=== PATIENT | female | born 1945 | race Caucasian/White ===

== ENCOUNTER 2016-08-20 18:55 | Emergency (ER) | payer OTHER ==
[~2016-08-20] VITALS: Ht 165.1 cm; Wt 66.6 kg
[~2016-08-20 18:55] MED LIST: 1-ME1LIQ PO; HYDR-3580 PO; MOBI7.5T PO; RIVA10 PO; SIMV5TAB3 PO; VITA400C58 PO; XANA0.5T PO; Z.0.COMMODE-3:1; Z.0.CPM; Z.0.WALKERFRONT
[2016-08-20 19:51] VITALS: BP 155/78; PULSE 66; RESP 20; TEMP 97.9; O2SAT 100
[2016-08-20] MEDS ORDERED: TRAM50TA PO (20:19)
[2016-08-20] MEDS ORDERED: MELO7.5T4 PO (20:19)
[2016-08-20] MEDS ORDERED: ALPR.5 PO (20:19)
[2016-08-20] MEDS ORDERED: SIMV5TAB3 PO (20:19)
[2016-08-20] MEDS ORDERED: HYDR-3580 PO (20:19)
[2016-08-20] MEDS ORDERED: AMLO10TA2 PO (20:19)
[2016-08-20 20:35] VITALS: BP 183/88; PULSE 62; RESP 22; O2SAT 98
--- NOTE | 2016-08-20 22:42 | RADHPO ---
EXAM DATE/TIME: 08/20/2016 21:33 [facility] COMPARISON: No previous studies available for comparison. INDICATIONS : Right hip pain post fall two weeks ago. ORAL CONTRAST: No oral contrast ingested. RADIATION DOSE: 30.81 CTDIvol (mGy) ; Combined studies MEDICAL HISTORY : Hypertension. Left hip replacement. SURGICAL HISTORY : Fusion, lumbar. ENCOUNTER: Initial ACUITY: 2 weeks PAIN SCALE: 10/10 LOCATION: Right hip TECHNIQUE: Volumetric scanning of the pelvis was performed. Using automated exposure control and adjustment of the mA and/or kV according to patient size, radiation dose was kept as low as reasonably achievable t o obtain optimal diagnostic quality images. FINDINGS: Left total hip arthroplasty without evidence of dislocation. The right proximal femur is intact. No fracture seen. The right acetabulum is intact. The bony pelvic ring is intact without evidence of fracture. There is diffuse osteopenia. No evidence of free fluid in the pelvis. Moderate distentio n of urinary bladder. Inguinal regions are unremarkable. CONCLUSION: The osseous structures of the pelvis are grossly intact. Asher White MD on August 20, 2016 at 22:39 Board Certified Radiologist. This report was verified electronically.
[2016-08-20] MEDS ORDERED: oxyCODONE/ACETAMINOPHEN 5 MG/325 MG TAB PO ONE (23:00)
[2016-08-20] MEDS ORDERED: PROMETHAZINE HCL 25 MG TAB PO ONE (23:00)
--- NOTE | 2016-08-20 23:03 | RADHPO ---
EXAM DATE/TIME: 08/20/2016 21:33 [facility] COMPARISON: No previous studies available for comparison. INDICATIONS : Lower back pain post fall two weeks ago. RADIATION DOSE: 30.81 CTDIvol (mGy) ; Combined studies MEDICAL HISTORY : Hypertension. SURGICAL HISTORY : Fusion, lumbar. ENCOUNTER: Initial ACUITY: 2 weeks PAIN SCALE: 10/10 LOCATION: Lower back. TECHNIQUE: Volumetric scanning of the lumbar spine was performed. Multiplanar reconstructions in the sagittal, coronal and oblique axial planes were performed. Using automated exposure control and adjustment of the mA and/or kV according to patient size, radiation dose was kept as low as reasonably achievable t o obtain optimal diagnostic quality images. FINDINGS: There is normal alignment of vertebral bodies the lumbar spine and preservation of vertebral body hei ght. Vacuum phenomenon is seen in the L3-4 and L5-S1 discs. Moderate hypertrophic degenerative lo ges are present in the facet joints from L3-S1, slightly more prominent on the left side than on the right. No evidence of pars defect. Vascular calcification is seen in the wall of the abdominal aort a and iliac vessels. T12-L1: The thecal sac has a normal diameter. No evidence of disc bulge or protrusion. The neural foramina are patent bilaterally. L1-L2: The thecal sac has a normal diameter. No evidence of disc bulge or protrusion. The neural foramina are patent bilaterally. L2-L3: Broad-based bulging of the disc which extends into the neural foramen bilaterally. The epidural impr ession on the right side is greater than the left. L3-L4: Broad-based bulging of the disc flattening the ventral margin of the thecal sac. There is bilateral bony neural foraminal stenosis. Right laminectomy. L4-L5: There is central protrusion of the disc which flattens the ventral margin of the thecal sac. There i s some bulging of the disc into the neural foramen bilaterally but no lateral disc protrusion. Moder ate ligamentum flavum hypertrophy causes a triangular configuration to the thecal sac. AP dimension of the thecal sac measures 12 mm. L5-S1: Broad-based bulging of the disc without deviation of the S1 nerve roots or flattening the ventral mar gin of the thecal sac. CONCLUSION: 1. No evidence of compression deformity or spondylolisthesis. 2. Multilevel disc disease, greatest severity at the L4-5 level where there is a central disc protrus ion. Asher White MD on August 20, 2016 at 22:57 Board Certified Radiologist. This report was verified electronically.
[2016-08-20 23:09] VITALS: BP 160/67; RESP 20; O2SAT 99
[2016-08-20 23:33] VITALS: BP 176/75; PULSE 70; RESP 18; TEMP 98.1; O2SAT 95
[2016-08-20] MEDS ORDERED: PROM25TA5 PO (23:39)
[2016-08-20] MEDS ORDERED: ZOFR4TAB3 SL (23:39)
[2016-08-20] MEDS ORDERED: PRED20 PO (23:39)
--- NOTE | 2016-08-20 23:39 | PD ---
HPI Chief Complaint: Hip Injury Time Seen by Provider: 20:38 Travel History International Travel<30 days: No Contact w/Intl Traveler<30days: No Traveled to known affect area: No History of Present Illness HPI Patient 71-year-old female presents with her daughter for evaluation of right hip and right low back pain. Patient states been radiating down her legs for the past few days. Patient relates a history of approximate 2 weeks ago she tripped and fell landing on her right side. Patient tripped over a branch FOR horses. Patient did not think anything of it at the time did not feel any pops. Over time the pain has become more significant than her right lower extremity. Denies any saddle anesthesia denies any dysuria denies any fevers. PFSH Past Medical History Arthritis: Yes (osteoarthritis) Anxiety: Yes Cancer: No Cardiovascular Problems: No High Cholesterol: Yes Diabetes: No Diminished Hearing: No Endocrine: No Genitourinary: No Hepatitis: No Hiatal Hernia: No Hypertension: Yes Immune Disorder: No Musculoskeletal: Yes (ARTHRITIS, OSTEOPOROSIS) Neurologic: No Psychiatric: Yes (ANXIETY) Reproductive: No Respiratory: Yes (COPD) Thyroid Disease: No Tetanus Vaccination: Unknown Influenza Vaccination: Yes ?: Not Past Surgical History AICD: No Hysterectomy: Yes (PARTIAL) Joint Replacement: Yes (2 titanium knee replacement; left hip replacement) Oral Surgery: Yes (BACK) Pacemaker: No Thoracic Surgery: Yes (back surgery 1994) Social History Alcohol Use: No Tobacco Use: Yes Substance Use: No Allergies-Medications (Allergen,Severity, Reaction): Coded Allergies: Mushroom (Verified Allergy, Severe, SWELLING, NAUSEA, 08/20/16) Penicillin (Verified Allergy, Unknown, Swelling, 08/20/16) Sulfa (Verified Allergy, Unknown, Swelling, 08/20/16) Reported Meds & Prescriptions Reported Meds & Active Scripts Active Phenergan (Promethazine HCl) 25 Mg Tab 25 Mg PO Q6H PRN Zofran Odt (Ondansetron Odt) 4 Mg Tab 4 Mg SL Q6HR PRN Prednisone 20 Mg Tab 60 Mg PO DAILY 5 Days Reported Hydrocodone-Acetaminophen 7.5-325 mg Tab 1 Tab PO Q4H PRN Xanax (Alprazolam) 0.5 Mg Tab 0.25 Mg PO DAILY Tramadol (Tramadol HCl) 50 Mg Tab 50 Mg PO Q8H PRN Simvastatin 5 Mg Tab 2.5 Mg PO DAILY Amlodipine (Amlodipine Besylate) 10 Mg Tab 10 Mg PO DAILY Meloxicam 7.5 Mg Tab 7.5 Mg PO DAILY Review of Systems Except as stated in HPI: all other systems reviewed are Neg Physical Exam Narrative GENERAL: Well-nourished, well-developed patient. SKIN: Focused skin assessment warm/dry. HEAD: Normocephalic. EYES: No scleral icterus. No injection or drainage. NECK: Supple, trachea midline. No JVD or lymphadenopathy. CARDIOVASCULAR: Regular rate and rhythm without murmurs, gallops, or rubs. RESPIRATORY: Breath sounds equal bilaterally. No accessory muscle use. GASTROINTESTINAL: Abdomen soft, non-tender, nondistended. MUSCULOSKELETAL: No cyanosis, or edema. There is bony tenderness at the SI joint on the right. There is minimal midline tenderness in the low-dose lumbar spine. Pelvis is stable. No tenderness at the hip or greater trochanter. Full range of motion of the leg albeit tender. Pulses motor and sensory intact distally in all 4 extremities. Compartments are soft. Patient has 5 out of 5 plantar flexion both feet, 5 out of 5 extension at the knee. She ambulates antalgic without foot drop. BACK: Nontender without obvious deformity. No CVA tenderness. Data Data Last Documented VS Vital Signs Date Time Temp Pulse Resp B/P Pulse Ox O2 Delivery O2 Flow Rate FiO2 08/21/16 01:00 18 08/20/16 23:33 98.1 70 176/[address] Lumb Spine W/O Contrast (08/20/16 ) Ct Pelvis W/O Iv Contrast (08/20/16 ) Oxycodone-Acetamin 5-325 Mg (Percocet (08/20/16 23:00) Promethazine (Phenergan) (08/20/16 23:00) MDM Medical Decision Making Medical Screen Exam Complete: Yes Emergency Medical Condition: Yes Differential Diagnosis Pathologic fracture, sciatica, spinal stenosis, sacroiliitis. Narrative Course Patient was roomed in the emergency department, initially offered pain medication and she declined. CT scans of her lumbar spine and pelvis were obtained: Last [address] 08/20/16 0000 Signed Impressions: Service Date/Time: Saturday, August 20, 2016 21:33 - CONCLUSION: The osseous structures of the pelvis are grossly intact. Asher White MD Lumbar Spine CT 08/20/16 0000 Signed Impressions: Service Date/Time: Saturday, August 20, 2016 21:33 - CONCLUSION: 1. No evidence of compression deformity or spondylolisthesis. 2. Multilevel disc disease, greatest severity at the L4-5 level where there is a central disc protrusion. Asher White MD Patient on revisit opted for pain medication. She was feeling better. Discussed with her my impression of sciatica type symptoms. Discussed steroids may be of some benefit but she will ultimately need to follow up with her primary care physician and get an MRI. There is no indication for MRI in the emergency department. She has no convincing signs of symptoms for cauda equina. She is stable for discharge at this time. Patient does have opiate pain medications at home. She states she does not like to take them because she makes her nauseous and requests nausea medicine and I'm happy to prescribe her some. Diagnosis Primary Impression: Low back pain Qualified Code: M54.41 - Acute right-sided low back pain with right-sided sciatica Referrals: Eddie Maradiaga Jr., MD Med/Other Pt SpecificInfo: Prescription(s) given Scripts Promethazine (Phenergan)25 Mg Tab25 Mg PO Q6H PRN (Nausea/Vomiting) #15 TAB Ref 0 Prov:Jose Lucas MD 08/20/16 Ondansetron Odt (Zofran Odt)4 Mg Tab4 Mg SL Q6HR PRN (Nausea/Vomiting) #30 TAB Ref 0 Prov:Jose Lucas MD 08/20/16 Prednisone 20 Mg Tab60 Mg PO DAILY 5 Days Ref 0 Prov:Jose Lucas MD 08/20/16 Disposition: 01 DISCHARGE HOME Condition: Stable Jose Lucas MD Aug 20, 2016 23:39
[2016-08-21 01:00] VITALS: RESP 18
== END 2016-08-21 00:58 | disposition home or self-care (01) ==
LOC: PHED 18:55
DX: M54.41 Lumbago with sciatica, right side (principal); M19.90 Unspecified osteoarthritis, unspecified site; F41.9 Anxiety disorder, unspecified; I10 Essential (primary) hypertension; Z72.0 Tobacco use
CPT/HCPCS: 72131; 72192; 99284; Q0169

== ENCOUNTER 2016-11-07 15:17 | Inpatient (IN) | payer OTHER, MEDICARE ==
[~2016-11-07] VITALS: Ht 163.8 cm; Wt 73.1 kg
[~2016-11-07 15:17] MED LIST changes: -1-ME1LIQ PO; +AMLO10TA2 PO; -MOBI7.5T PO; -RIVA10 PO; -SIMV5TAB3 PO; -VITA400C58 PO; -XANA0.5T PO; -Z.0.COMMODE-3:1; -Z.0.CPM; -Z.0.WALKERFRONT; +ZOFR4TAB3 SL
[2016-11-25] MEDS ORDERED: VARE.5 PO (11:06)
[2016-11-25] MEDS ORDERED: ALPR.5 PO (11:09)
[2016-11-25] MEDS ORDERED: MELO-1 PO (11:09)
[2016-11-25] MEDS ORDERED: SIMV20TA PO (11:12)
--- NOTE | 2016-12-02 11:03 | MH ---
cc: NICK CARMICHAEL M.D. DATE OF ADMISSION: 12/03/2016 ADMISSION DIAGNOSIS Osteoarthritis, right hip. HISTORY OF PRESENT ILLNESS This patient is a 71-year-old female who presents for treatment of her right hip. The patient fell in August of this year sustaining an injury to her back and hip region. The patient has had previous treatment for arthritis of her left hip and both of her knees. The patient has evidence of collapsing from avascular necrosis. The patient has had conservative care of her hips now for several years. Two years ago she had a total hip replacement on the left on the [facility]. She now has failed conservative care and presents for surgical treatment of her right hip. PAST MEDICAL HISTORY, SOCIAL HISTORY, FAMILY HISTORY AND REVIEW OF SYSTEMS: See attached notes. PHYSICAL EXAMINATION VITAL SIGNS: 5 feet 4 inches, 154 pounds. BMI 26.4. Blood pressure 130/68. HEENT: Normocephalic, atraumatic. Pupils equal, round and reactive to light and accommodation. Extraocular motion intact. NECK: Supple. CHEST: Clear. HEART: Regular rate and rhythm. Soft, nontender. Normoactive bowel sounds. MUSCULOSKELETAL: Right hip has severe pain with range of motion. There is range of motion to flexion 80, extension 0, internal rotation 20, external rotation 30. Severe pain with range of motion. Left hip has full range of motion, no pain. There is a well-healed incision. Avfzyyer-[id number] is negative. Motor examination is normal. IMAGING X-ray AP pelvis shows evidence of an uncemented hip replacement arthroplasty on the left in satisfactory alignment. The right hip shows evidence of collapse consistent with avascular necrosis. There is moderate to extensive arthritis of the right hip. IMPRESSION 1. Osteoarthritis, right hip. 2. Avascular necrosis, right hip. PLAN Right total hip replacement arthroplasty, direct anterior exposure. CONSENT There are risks of surgery including infection, bleeding, loss of motion, continued pain, need for further surgery, neurologic and vascular injury. The patient understands these issues and wishes to press on with surgery as outlined above. MD DICK Moralez/RADHIKA /10:45 AM /10:56 AM
[2016-12-03] MEDS ORDERED: POVIDONE IODINE 5% (ANTISEPSIS KIT) 4 APPLICATIONS EACH NARE PRN (05:30)
[2016-12-03] MEDS ORDERED: LACTATED RINGER'S 1000 ML IV PRN (05:30)
[2016-12-03] MEDS ORDERED: INSULIN HUMAN REGULAR 1,000 UNITS/10 ML VIAL SQ PRN (05:30)
[2016-12-03] MEDS ORDERED: VANCOMYCIN 1000 MG/NS 250 ML (for <70 kg) IV SCH ×2 (05:30)
[2016-12-03] MEDS ORDERED: CHLORHEXIDINE GLUCONATE 2 % 1 PACK (2 CLOTHS) TOPICAL PRN (05:30)
[2016-12-03] MEDS ORDERED: POVIDONE IODINE 7.5% SCRUB 118 ML BOTTLE TOPICAL SCH (05:30)
[2016-12-03] MEDS ORDERED: SODIUM CHLORID 0.9% 500 ML IV PRN (05:30)
[2016-12-03] MEDS ORDERED: ceFAZolin 2 GM PREMIX 50 ML IV SCH (05:30)
[2016-12-03] MEDS ORDERED: METOPROLOL TARTRATE 25 MG TAB PO PRN (05:30)
[2016-12-03] MEDS ORDERED: TRANEXAMIC ACID IV SCH (06:00)
[2016-12-03] MEDS ORDERED: SODIUM CHLORIDE 0.9% IV SCH (06:00)
[2016-12-03] MEDS ORDERED: EXPAREL PERI-ARTICULAR INJECTION (TOTAL VOL. 60 ML) P-ARTICULR SCH ×2 (06:00)
[2016-12-03 06:09] VITALS: BP 121/80; PULSE 76; RESP 20; TEMP 98.3; O2SAT 97
[2016-12-03] MEDS ORDERED: GENTAMICIN SULFATE 80 MG/2 ML VIAL ONE (06:20)
[2016-12-03] MEDS ORDERED: ACETAMINOPHEN 1000 MG/100 ML VIAL IV ONE (07:07)
[2016-12-03] MEDS ORDERED: MIDAZOLAM HCL 2 MG/2 ML VIAL ONE (07:07)
[2016-12-03] MEDS ORDERED: FAMOTIDINE 20 MG/2 ML VIAL ONE (07:08)
[2016-12-03] MEDS ORDERED: DEXAMETHASONE SOD PHOS 4 MG/ML VIAL ONE (07:08)
[2016-12-03] MEDS ORDERED: SUGAMMADEX SODIUM 200 MG/2 ML VIAL IV PUSH ONE ×2 (07:09)
[2016-12-03] MEDS ORDERED: ceFAZolin INJ 1,000 MG VIAL ONE ×2 (07:19→07:34)
--- NOTE | 2016-12-03 09:42 | PD.OP ---
cc: Franki Frias MD Operative Report Date of Surgery: Dec 03, 2016 Preoperative Diagnosis: Osteoarthritis right hip Postoperative Diagnosis: Same Procedure: Right total hip replacement arthroplasty, direct anterior exposure Anesthesia: Gen. Surgeon: Franki Frias Chief Cloth Finishing Range Operator(s): MULU Carbajal Operation and Findings: EBL: 300 cc INDICATION: This patient presents with significant hip pain related to severe osteoarthritis of the right hip. The patient had a previous left total hip replacement plasty and has done well.. Despite extensive conservative care this patient continues to be painful and now presents for surgical treatment. NOTE: Alba Carbajal PA-C was present for the entire surgical procedure as my first press operator. In my medical opinion her skill and care was necessary for the proper management of this patient. COMPONENTS: COMPANY: [employer] CUP: [place], 52, 100 series, gription surface LINER: Altrx 32, neutral STEM: Size 12, high offset, [place], hydroxyapatite-coated HEAD: 32, +5, 12/14 taper PROCEDURE: This patient was brought to the operating room and anesthetized in the supine position and positioned on the fracture table with both legs held extended. The right hip and leg was scrubbed with alcohol followed by Hibiclens followed by ChloraPrep and draped sterilely. Antibiotics were given within routine time window and a timeout was done. A 4 inch incision was made starting 2 cm distal and 2 cm lateral to the anterior superior iliac spine. The fascia christine was opened longitudinally. The interval between the fascia christine and the rectus was opened down to the capsule of the hip joint. Retractors were positioned allowing good visualization of the capsule. This was opened longitudinally and flaps were created. Stay sutures were utilized. Exposure was excellent. The neck was cut at the proper location using fluoroscopy as a guide. The head was removed. Deep retractors were positioned allowing good visualization of the acetabulum. Acetabulum was deepened down to the floor starting with a proper size reamer and reaming up to 51 mm. A trial was utilized. Fluoroscopy was used to check position and confirmed satisfactory alignment. The rim was reamed with a 52 mm reamer and the final cup was positioned in approximately 20 of anteversion and 40-45 of abduction. Position was satisfactory. A single hole eliminator was positioned followed by a single dome screw. The final liner was impacted. The lifting hook was utilized. The leg was dropped to the floor, maximally externally rotated and brought across the midline. Retractors were positioned. A box osteotome was utilized followed by progressive broaching to the proper stem size. Trial reduction showed excellent alignment and fit. With 60 of external rotation the leg was dropped to the floor without evidence of anterior subluxation. The wound was irrigated. The final stem was inserted and was found to be very stable. The final reduction using the final head. Stability was as previously noted. Intraoperative x-rays were taken. The wound was irrigated copiously. Hemostasis was controlled. Local anesthesia was utilized. The capsule was repaired with #2 Tycron sutures. The fascia christine was repaired with running 0 PDS on a loop. Subcutaneous tissue was approximated with 2-0 Vicryl and skin with running intradermal 3-0 Vicryl followed by Steri-Strips. A sterile dressing was applied. The patient was awakened and taken to the recovery room in satisfactory condition. FINDINGS: There was severe osteoarthritis of the right hip. 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 The final solution was satisfactory. Franki Frias MD Dec 03, 2016 09:42
[2016-12-03] MEDS ORDERED: HYDR-3580 PO (09:44)
[2016-12-03] MEDS ORDERED: XARE10TA PO (09:44)
[2016-12-03] MEDS ORDERED: MISCELLANEOUS NURSING INFORMATION XX PRN (09:45)
[2016-12-03] MEDS ORDERED: NALOXONE HCL 0.4 MG/ML AMP IV PRN (09:45)
[2016-12-03] MEDS ORDERED: SODIUM CHLORIDE 0.9% FLUSH 5 ML FLUSH IVF PRN (09:45)
[2016-12-03] MEDS ORDERED: ACETAMINOPHEN/HYDROcodone 325 MG/7.5 MG TAB PO PRN (09:45)
[2016-12-03] MEDS ORDERED: MORPHINE SULFATE 8 MG/ML INJ IM PRN (09:45)
[2016-12-03] MEDS ORDERED: MISCELLANEOUS PHARMACY INFORMATION XX ONE (09:45)
[2016-12-03] MEDS ORDERED: Post-op Orders (for Pharmacy) MISC XX ONE (09:45)
[2016-12-03] MEDS ORDERED: MORPHINE SULFATE 30 MG/30 ML PCA IV SCH (09:45)
[2016-12-03] MEDS ORDERED: DO NOT ADM ANY ANTICOAGULANT DRUGS PRN (10:09)
[2016-12-03] MEDS ORDERED: *morphine SULFATE 8 MG/ML PERIprocedure ONLY ONE (10:17)
[2016-12-03] MEDS ORDERED: MORPHINE SULFATE 4 MG/ML INJ ONE (10:20)
[2016-12-03] MEDS ORDERED: fentaNYL CITRATE 250 MCG/5 ML AMP ONE (10:20)
[2016-12-03] MEDS: LACTATED RINGER'S 1000 ML INJ 1,000 ML IV SCH ×2 (10:24→22:35)
--- NOTE | 2016-12-03 10:32 | RADRPT ---
EXAM DATE/TIME: 12/03/2016 08:17 [facility] COMPARISON: No previous studies available for comparison. INDICATIONS : Right anterior hip replacement. MEDICAL HISTORY : Hypertension. Osteoarthritis. Smoker. SURGICAL HISTORY : Left anterior hip replacement. ENCOUNTER: Initial ACUITY: 1 day PAIN SCORE: Non-responsive. LOCATION: Right anterior hip. FINDINGS: A two view examination of the right hip was performed. The patient sat up total hip are the plasty w ithout complication. There is no evidence of fracture. Hardware is in excellent position.. CONCLUSION: Unremarkable examination of the right hip status post total hip arthroplasty. Bonifacio Vicente MD on December 03, 2016 at 10:30 Board Certified Radiologist. This report was verified electronically.
[2016-12-03] MEDS ORDERED: PHENYLEPH/NS 1000 MCG/10 ML SYR IV ONE (12:00)
[2016-12-03] MEDS ORDERED: ONDANSETRON HCL 4 MG/2 ML VIAL IV PUSH ONE (12:00)
[2016-12-03] MEDS ORDERED: LACTATED RINGER'S 1000 ML INJ 1,000 ML IV ONE (12:00)
[2016-12-03] MEDS ORDERED: PROPOFOL 200 MG/20 ML AMP IV ONE (12:00)
[2016-12-03] MEDS ORDERED: ePHEDrine/NS 25 MG/5 ML SYR IV ONE (12:00)
[2016-12-03] MEDS: PCA - TOTAL MG MORPHINE DELIVERED PER SHIFT SCH ×2 (14:00→22:00)
[2016-12-03 15:00] VITALS: BP 127/69; PULSE 83; RESP 20; TEMP 96.9; O2SAT 97
[2016-12-03] MEDS: ONDANSETRON HCL 4 MG/2 ML VIAL IV PUSH PRN (16:44)
[2016-12-03 17:44] VITALS: O2SAT 97
[2016-12-03 19:57] VITALS: BP 134/67; PULSE 87; RESP 16; TEMP 99; O2SAT 96
[2016-12-03 20:39] VITALS: O2SAT 95
[2016-12-03] MEDS: ALPRAZolam 0.5 MG TAB PO SCH (20:45)
[2016-12-03] MEDS: SODIUM CHLORIDE 0.9% FLUSH 5 ML FLUSH IVF SCH (20:45)
[2016-12-03] MEDS: SENNOSIDES 8.6 MG TAB PO SCH (20:45)
[2016-12-03] MEDS: MAGNESIUM HYDROXIDE SUSP 30 ML CUP PO SCH (20:45)
[2016-12-04] VITALS (7 sets, daily range): BP systolic 95–135; BP diastolic 54–71; PULSE 84–106; RESP 16–18; TEMP 98.7–100.2; O2SAT 90–98
[2016-12-04] MEDS: PCA - TOTAL MG MORPHINE DELIVERED PER SHIFT SCH (05:26)
[2016-12-04 05:36] LABS: HEMATOCRIT 30.7 % (35.0-46.0); REVIEW FLAG FINAL
[2016-12-04] MEDS ORDERED: WALKER WHEELS/F1 MIS (08:07)
[2016-12-04] MEDS ORDERED: COMMODE 3-IN-11 MIS (08:08)
--- NOTE | 2016-12-04 08:09 | HHI.FF ---
Face to Face Verification Diagnosis: (1) Right hip pain (2) Osteoarthritis of right hip Physical Therapy Gait training, Safety evaluation, Transfer training, bed to chair Hip: Total hip, Protocol: Right, Progress to weight bearing Right LE Weight Bearing: WB as tolerated Additional Instructions PT 4 days/wk for 2 weeks. WBAT RLE. Anterior CATIE precautions. Gait training. Nursing RN Days per Week: 2 x Week(s): 1 Dressing Changes: Do not change dressing Additional Instructions Hold dressing changes unless saturated. Vitals assessment. I have seen patient Guerita Carolina on 12/04/16. My clinical findings support the need for the requested home health care services because: Limited ability to care for self High risk of falls I certify that my clinical findings support that this patient is homebound because: Post-op weakness Unsteady gait/balance Melany Du Dec 04, 2016 08:09
[2016-12-04] MEDS: PRAVASTATIN SOD 40 MG TAB PO SCH (09:07)
[2016-12-04] MEDS: RIVAROXABAN 10 MG TAB PO SCH (09:07)
[2016-12-04] MEDS: ALPRAZolam 0.5 MG TAB PO SCH ×2 (09:07→20:22)
[2016-12-04] MEDS: MAGNESIUM HYDROXIDE SUSP 30 ML CUP PO SCH ×2 (09:07→20:22)
[2016-12-04] MEDS: ACETAMINOPHEN/HYDROcodone 325 MG/7.5 MG TAB PO PRN ×2 (09:08→20:22)
[2016-12-04] MEDS: SODIUM CHLORIDE 0.9% FLUSH 5 ML FLUSH IVF SCH ×2 (09:10→21:00)
[2016-12-04] MEDS: ONDANSETRON HCL 4 MG/2 ML VIAL IV PUSH PRN (09:16)
[2016-12-04] MEDS: LACTATED RINGER'S 1000 ML INJ 1,000 ML IV SCH ×2 (10:38→21:49)
--- NOTE | 2016-12-04 12:33 | HHI.DCPOC ---
Discharge Care Plan Diagnosis: (1) Right hip pain (2) Osteoarthritis of right hip Your Health Problems Are: Incision/Drains Inflammation Swelling Goals to Promote Your Health * To prevent worsening of your condition and complications * To maintain your health at the optimal level Directions to Meet Your Goals Take your medications as prescribed Follow your dietary instruction Follow activity as directed Keep your appointments as scheduled Take your immunizations and boosters as scheduled If your symptoms worsen call your PCP, if no PCP go to Urgent Care Center or Emergency Room Smoking is Dangerous to Your Health. Avoid second hand smoke Call the 24-hour hour crisis hotline for domestic abuse at Melany Du Dec 04, 2016 12:33
--- NOTE | 2016-12-04 12:36 | PD.ORT.PN ---
Subjective Subjective Remarks Moderate right hip aching with 'throbbing' into the thigh . No radiating leg pain below the knee. Trouble sleeping last night but better this morning. Slight cough. No other concerns. No new CP or SOB. Was considering d/c home today but prefers tomorrow. Objective Vitals Vital Signs Date Time Temp Pulse Resp B/P Pulse Ox O2 Delivery O2 Flow Rate FiO2 12/04/16 12:00 99.7 84 18 95/56 90 12/04/16 09:57 97 21 12/04/16 08:00 98.7 89 18 115/61 98 12/04/16 05:26 16 12/04/16 04:00 100.2 91 16 131/68 95 12/04/16 00:20 99.8 86 16 135/71 96 12/03/16 22:00 16 12/03/16 20:39 95 21 12/03/16 19:57 99.0 87 16 134/67 96 12/03/16 17:44 97 21 12/03/16 15:00 96.9 83 20 127/69 97 12/03/16 14:33 98.2 83 20 116/90 96 Nasal Cannula 2 12/03/16 14:00 73 18 118/67 94 Nasal Cannula 2 12/03/16 13:00 73 24 122/88 96 Nasal Cannula 2 I/O 12/03/16 12/03/16 12/03/16 12/04/16 12/04/16 12/04/16 06:59 14:59 22:59 06:59 14:59 22:59 Intake Total 2077 ml 600 ml 480 ml Output Total 725 ml 950 ml Balance 1352 ml -350 ml 480 ml Intake Oral 100 ml 600 ml 480 ml IV Total 477 ml Other 1500 ml Output Urine Total 425 ml 950 ml Estimated Blood Loss 300 ml Result Diagram: 12/04/16 0425 Objective Remarks Laying in bed, NAD VSS RLE Dressing c/d/i, minimal SS drainage, thigh supple, no erythema +motor at, +sens, +nvi neg homans bilat Assessment & Plan Ortho Post Op Day #: 1 Problem List: Assessment and Plan pod#1 s/p R CATIE, anterior D/C inspector electromechanical - change to po pain meds. Hold dressing changes unless saturated. PT - WBAT RLE. Anterior catie precautions. Xarelto 10mg qd. IS encouraged. Ice right hip and thigh. D/C planning, likely C tomorrow. Melany Du Dec 04, 2016 12:36
[2016-12-04] MEDS: SENNOSIDES 8.6 MG TAB PO SCH (20:22)
[2016-12-05 01:42] VITALS: BP 109/61; PULSE 94; RESP 16; TEMP 100.3; O2SAT 91
[2016-12-05] MEDS: ACETAMINOPHEN/HYDROcodone 325 MG/7.5 MG TAB PO PRN ×2 (04:10→10:40)
[2016-12-05 05:23] VITALS: BP 119/53; PULSE 92; RESP 16; TEMP 100.1; O2SAT 92
[2016-12-05 08:00] VITALS: BP 101/61; PULSE 85; RESP 18; TEMP 97.3; O2SAT 93
[2016-12-05] MEDS: PRAVASTATIN SOD 40 MG TAB PO SCH (08:10)
[2016-12-05] MEDS: ALPRAZolam 0.5 MG TAB PO SCH (08:10)
[2016-12-05] MEDS: MAGNESIUM HYDROXIDE SUSP 30 ML CUP PO SCH (08:10)
[2016-12-05] MEDS: RIVAROXABAN 10 MG TAB PO SCH (08:10)
[2016-12-05] MEDS: SODIUM CHLORIDE 0.9% FLUSH 5 ML FLUSH IVF SCH (08:11)
--- NOTE | 2016-12-05 08:14 | HHI.DS ---
Discharge Summary Admission Date Dec 03, 2016 at 05:08 Discharge Date: Dec 05, 2016 Admitting Diagnosis see below Diagnosis: (1) Right hip pain Diagnosis: Principal (2) Osteoarthritis of right hip Diagnosis: Principal (3) Avascular necrosis of bone of right hip Diagnosis: Principal Procedures Right total hip arthroplasty, direct anterior approach Brief History This is a 71 year old female patient with a history of left total hip arthroplasty years ago. Approximately 4 months ago she had an episode of significant right hip pain after falling off a horse. It persisted for several weeks so she sought out medical treatment. Imaging studies showed moderate arthritis but there was some evidence for AVN and slight fracturing proximal of the femoral head. Conservative measures were pursued for 6-8 weeks but she continued to decline. Xrays showed advancing fracturing. Surgical treatment was recommended in the form of right total hip arthroplasty. She agreed and presents today for the above. CBC/BMP: 12/04/16 0425 Significant Findings Laboratory Tests Test 12/04/16 04:25 Hemoglobin 10.8 GM/DL (11.6-15.3) Hematocrit 30.7 % (35.0-46.0) PE at Discharge Laying in bed, NAD VSS RLE Dressing c/d/i, minimal SS drainage, thigh supple, no erythema +motor at, +sens, +nvi neg homans bilat Hospital Course Surgical treatment was performed on the day of admission without complication. She recovered well in pacu and was transferred to the orthopaedic floor. Pain was controlled with IV and oral medications. DVT prophylaxis was initiated pod# 1 with xarelto. She was compliant with physical therapy and all restrictions. After 2 days she was found to be stable and discharged home with home health care. She was instructed to continue PT, continue her xarelto for 25 days and to pursue a high fiber diet for 3-5 days. Pt Condition on Discharge: Stable Discharge Disposition: Disch w/ Home Health Serv Discharge Instructions Diet Instructions: As Tolerated, No Restrictions, High Fiber Diet Activities You Can Perform: Weight Bearing as Zak Activities to Avoid: Strenuous Activity Additional Activity Instruc.: Anterior geovanny precautions New Medications: Commode 3-in-1 (Commode 3-in-1) 1 Mis Mis 1 EA .ROUTE DIRECTED #1 Ref 0 EA Walker with Front Wheels (Walker with Front Wheels) 1 Mis Mis 1 EA .ROUTE DIRECTED #1 Ref 0 EA Hydrocodone-Acetaminophen (Hydrocodone-Acetaminophen) 7.5-325 mg Tab 1 TAB PO Q4H PRN PAIN LESS THAN 5 ON SCALE #50 TAB Rivaroxaban (Xarelto) 10 Mg Tab 10 MG PO Q24H Prevent Blood Clot #25 TAB Continued Medications: Alprazolam (Xanax) 0.5 Mg Tab 0.5 MG PO BID ANXIETY Ref 0 TAB Amlodipine (Amlodipine) 10 Mg Tab 10 MG PO DAILY Blood Pressure Management #30 Ref 0 TAB Hydrocodone-Acetaminophen (Hydrocodone-Acetaminophen) 7.5-325 mg Tab 1 TAB PO Q4H PRN PAIN Ref 0 TAB Ondansetron Odt (Zofran Odt) 4 Mg Tab 4 MG SL Q6HR PRN Nausea/Vomiting #30 Ref 0 TAB Simvastatin (Simvastatin) 20 Mg Tab 20 MG PO DAILY Cholesterol Management #30 Ref 0 TAB Varenicline (Chantix) 0.5 Mg Tab 0.5 MG PO BIDPC Days 4-7 Smoking cessation #8 Ref 0 TAB Discontinued Medications: Meloxicam (Meloxicam) 15 Mg Tab 15 MG PO DAILY Arthritis Pain #30 Ref 0 TAB Melany Du Dec 05, 2016 08:14
--- NOTE | 2016-12-05 08:16 | PD.ORT.PN ---
Subjective Subjective Remarks Moderate right hip aching with 'throbbing' into the thigh but improved from yesterday. No new radiating leg pain. Slept better last night. Cough is 'fine' . No other concerns. No new CP or SOB. Ready for d/c home today. Objective Vitals Vital Signs Date Time Temp Pulse Resp B/P Pulse Ox O2 Delivery O2 Flow Rate FiO2 12/05/16 05:23 100.1 92 16 119/53 92 12/05/16 01:42 100.3 94 16 109/61 91 12/04/16 22:07 99.2 106 16 133/68 92 12/04/16 16:00 99.6 91 18 122/54 96 12/04/16 12:00 99.7 84 18 95/56 90 12/04/16 09:57 97 21 I/O 12/04/16 12/04/16 12/04/16 12/05/16 12/05/16 12/05/16 07:00 15:00 23:00 07:00 15:00 23:00 Intake Total 480 ml 480 ml 220 ml 220 ml Output Total 250 ml Balance 480 ml 230 ml 220 ml 220 ml Intake Oral 480 ml 480 ml 220 ml 220 ml Output Urine Total 250 ml # Voids 1 1 1 # Bowel Movements 0 Result Diagram: 12/04/16 0425 Procedures Right total hip arthroplasty, direct anterior approach Objective Remarks Laying in bed, NAD VSS RLE Dressing c/d/i, no new drainage, thigh supple, no erythema +motor at, +sens, +nvi neg homans bilat Assessment & Plan Ortho Post Op Day #: 2 Problem List: (1) Right hip pain (2) Osteoarthritis of right hip (3) Avascular necrosis of bone of right hip Assessment and Plan pod#2 s/p R CATIE, anterior Ortho stable. Ok to d/c home w [facility] later today after PT. PO pain meds prn. Hold dressing changes unless saturated. PT - WBAT RLE. Anterior catie precautions. Xarelto 10mg qd. IS encouraged. Ice right hip and thigh. F/U in 2 weeks as scheduled. F2F written. Melany Du Dec 05, 2016 08:16
== END 2016-12-05 11:22 | disposition home or self-care (01) | DRG 470 ==
LOC: HSDI 12-03 05:08 → N06A 12-03 14:48
PROVIDERS: ADMIT Orthopaedic Surgery Orthopaedic Surgery of the Spine; ATTEND Orthopaedic Surgery Orthopaedic Surgery of the Spine
PROC: 0SR902A Replacement of Right Hip Joint with Metal on Polyethylene Synthetic Substitute, Uncemented, Open Approach (ICD-10-PCS; principal; 2016-12-03 07:14)
DX: M16.11 Unilateral primary osteoarthritis, right hip (principal); M87.9 Osteonecrosis, unspecified; Z79.01 Long term (current) use of anticoagulants; Z96.642 Presence of left artificial hip joint; Q65.89 Other specified congenital deformities of hip; Z91.81 History of falling
CPT/HCPCS: 73502; 76000; 85014; 85018; 86850; 86890; 86900; 86901; 86920; 94150; C1776; C9290; J0131; J0690; J1100; J1580; J2250; J2270; J2370; J2405; J3010; J3370; J7050; J7120